=== PATIENT | female | born 1950 | race Caucasian/White ===

== ENCOUNTER → 2016-11-12 | Outpatient (CLI) | payer OTHER | LOC: MMPC 11:11 | PROVIDERS: ATTEND Physician Assistant | DX: B34.9 Viral infection, unspecified (principal) | CPT/HCPCS: 87400; 99213; G0463 ==

== ENCOUNTER → 2016-12-16 | Outpatient (CLI) | payer OTHER ==
[2016-12-16 15:01] LABS: HEMOGLOBIN 14.4 g/dL (12.0-16.0)
[2016-12-16 15:06] LABS: BLOOD UREA NITROGEN 15 mg/dL (7-22); BUN/CREATININE RATIO 21.42 (6-20); CALCIUM 9.3 mg/dL (8.7-10.7); EST GLOMERULAR FILTRATION > 60 (>60 ml/min/1.73m(2)); SERUM ALBUMIN 3.7 g/dL (3.5-4.8)
[2016-12-16 15:07] LABS: BASOPHILS # (AUTO) 0.04 10*3/UL; BASOPHILS % (AUTO) 0.9 % (0-1); EOSINOPHILS % (AUTO) 2.3 % (0-8); HEMATOCRIT 42.5 % (37.0-47.0); LYMPHOCYTES # (AUTO) 2.29 10*3/uL; MEAN CORPUSCULAR HGB CONC 33.9 g/dL (33-37); MEAN CORPUSCULAR VOLUME 94.4 FL (81-99); MONOCYTES # (AUTO) 0.53 10*3/UL (0.3-0.8); MONOCYTES % (AUTO) 12.2 % (5-15); NEUTROPHILS # (AUTO) 1.36 10*3/UL; NEUTROPHILS % (AUTO) 31.5 % (50-80)
[2016-12-16 15:14] LABS: RBC MORPHOLOGY COMMENT NORMAL MORPHOLOGY (NORM); WBC MORPHOLOGY COMMENT NORMAL MORPHOLOGY (NORM)
[2016-12-16 15:15] LABS: PLATELET MORPHOLOGY COMMENT SEE COMMENTS (NORM)
== END ==
LOC: LAB 14:10
PROVIDERS: ATTEND Internal Medicine Gastroenterology
DX: B18.2 Chronic viral hepatitis C (principal); K74.69 Other cirrhosis of liver; K21.9 Gastro-esophageal reflux disease without esophagitis; R68.81 Early satiety
CPT/HCPCS: 36415; 80053; 82105; 85025; 85610

== ENCOUNTER → 2016-12-30 | Outpatient (CLI) | payer OTHER ==
--- NOTE | 2016-12-31 08:49 | DI ---
CT ABDOMEN SCAN WITHOUT AND WITH IV CONTRAST, 12/30/2016 8:59 AM : Clinical History: Hepatitis C. Status post Harvoni treatment was reportedly negative viral load. Cirr hosis. Previous Exam: None at this facility. Scans are performed from the lower lung bases through the liver and kidneys without and with IV contr ast. Sagittal and coronal reformatted images are generated. 75 ml of Isovue 300 was injected IV. Wate r was used for oral contrast. The lung bases are clear. The liver is small in size and has a nodular capsule consistent with the cl inical diagnosis of cirrhosis. There is no evidence of a tumor mass. The patient is status post kevin cystectomy. Both adrenal glands, the pancreas, and the spleen are normal. No varices are present. Bot h kidneys are normal in size, shape, position and contour. There is no hydronephrosis or hydroureter. No renal or ureteral calculi are present. There is no renal artery stenosis. There are no abnormal r etrocrural or periaortic nodes. There is no ascites. READIN. The liver is small in size and the capsule has a micronodular pattern consistent with cirrhosis. The spleen size is normal and the portal vein is patent. There are no esophageal, gastric, or splenic varices. 2. The remainder of the examination is normal.
== END ==
LOC: CT 08:55
PROVIDERS: ATTEND Internal Medicine Gastroenterology
DX: K31.84 Gastroparesis (principal); R68.81 Early satiety; K21.9 Gastro-esophageal reflux disease without esophagitis; K74.60 Unspecified cirrhosis of liver; B18.2 Chronic viral hepatitis C; Z92.29 Personal history of other drug therapy
CPT/HCPCS: 74170

== ENCOUNTER 2018-09-13 05:47 | Inpatient (IN) ==
[~2018-09-13 05:47] MED LIST: LIDOCAINE W/ SODIUM BICARB 0.5 ML SYR ONE; Lactated Ringers 1,000 ML PRIMARY IV ONE; ceFAZolin Inj 2gm (Premix) 2 GM/50 ML BAG IV ONE
[2018-09-13] MEDS ORDERED: Ketorolac Inj 30 MG, Morphine Inj (Ortho Cocktail) 5 MG, BUPivacaine Inj 0.25% PF 150 MG SPLASH ONE ×3 (06:00)
[2018-09-13] MEDS ORDERED: Nasal Sanitizer POPSWAB ampule 3 AMP (Nozin) PREOP DOSE ENOS SCH (06:00)
[2018-09-13] MEDS ORDERED: LIDOCAINE W/ SODIUM BICARB 0.5 ML SYR SUBD ONE (06:00)
[2018-09-13] MEDS ORDERED: Lactated Ringers 1,000 ML PRIMARY IV SCH (06:00)
[2018-09-13] MEDS ORDERED: ceFAZolin Inj 2gm (Premix) 2 GM/50 ML BAG IV ONE (06:00)
[2018-09-13 06:10] LABS: BILIRUBIN,URINE MODERATE (NEG); CLARITY,URINE CLEAR (CLEAR); COLOR,URINE YELLOW (Y); GLUCOSE, URINE (UA) NEGATIVE (NEG); OCCULT BLOOD,URINE NEGATIVE (NEG); PH,URINE 5.5 (5.0-8.5); PROTEIN,URINE 30 mg/dl (NEG)
[2018-09-13 06:18] LABS: URINE SAMPLE TYPE CLEAN CATCH URINE
[2018-09-13 06:32] LABS: BASOPHILS # (AUTO) 0.04 10*3/UL; EOSINOPHILS # (AUTO) 0.18 10*3/UL; EOSINOPHILS % (AUTO) 4.5 % (0-8); Hematocrit [HCT] 43.7 % (37.0-47.0); Hemoglobin [HGB] 14.9 g/dL (12.0-16.0); LYMPHOCYTES # (AUTO) 1.42 10*3/uL; MEAN CORPUSCULAR HEMOGLOBIN 31.1 PG (27-31); MEAN CORPUSCULAR HGB CONC 34.1 g/dL (33-37); MEAN CORPUSCULAR VOLUME 91.2 FL (81-99); MEAN PLATELET VOLUME 11.3 FL (7.4-12.2); MONOCYTES # (AUTO) 0.56 10*3/UL (0.3-0.8); MONOCYTES % (AUTO) 13.9 % (5-15); NEUTROPHILS # (AUTO) 1.84 10*3/UL; NEUTROPHILS % (AUTO) 45.5 % (50-80); RED BLOOD COUNT 4.79 10^6/uL (4.20-5.40)
[2018-09-13] MEDS ORDERED: MIDAZOLAM 5 MG/1 ML ONE (06:37)
[2018-09-13] MEDS ORDERED: fentaNYL Inj 250 MCG/5 ML VIAL ONE (06:37)
[2018-09-13] MEDS ORDERED: PROPOFOL 10 MG/1 ML (200 MG/20 ML) VIAL IV ONE (06:37)
[2018-09-13] MEDS ORDERED: LIDOCAINE MPF 2% - 5 ML (20 MG/1 ML) ONE (06:37)
[2018-09-13] MEDS ORDERED: LIDOCAINE 2%/ EPI 1:200,000 - 20 ML VIAL ONE (06:49)
[2018-09-13] MEDS ORDERED: BUPivacaine Inj 0.5% PF (5mg/ml) 30ml vial ONE (06:50)
[2018-09-13] MEDS ORDERED: BACITRACIN 50,000 UNIT VIAL IRRIG ONE (06:56)
[2018-09-13] MEDS ORDERED: Sodium Chloride 0.9% vial 20 ML ONE ×2 (06:56→07:00)
[2018-09-13] MEDS ORDERED: BUPivacaine Liposome/PF (Exparel) Inj 20ml vial INFIL ONE (07:00)
[2018-09-13] MEDS ORDERED: TRANEXAMIC ACID 1,000 MG / 10 ML VIAL ONE (07:49)
[2018-09-13 07:54] LABS: PLATELET MORPHOLOGY COMMENT NORMAL MORPHOLOGY (NORM); RBC MORPHOLOGY COMMENT NORMAL MORPHOLOGY (NORM); WBC MORPHOLOGY COMMENT NORMAL MORPHOLOGY (NORM)
[2018-09-13] MEDS ORDERED: Lactated Ringers 1,000 ML PRIMARY IV ONE ×2 (08:05→09:40)
[2018-09-13] MEDS ORDERED: SUFENTANIL 50 MCG/1 ML ONE (08:19)
[2018-09-13] MEDS ORDERED: KETAMINE HCL 100 MG/2 ML SYRINGE IV ONE (08:21)
[2018-09-13] MEDS ORDERED: EPINEPHrine Inj (1:1,000) 1 mg/ml amp ONE (09:11)
[2018-09-13] MEDS ORDERED: PHENYLEPHRINE 10,000 MCG/1 ML VIAL ONE (09:26)
[2018-09-13] MEDS ORDERED: GLYCOPYRROLATE 0.2 MG/1 ML VIAL ONE (09:26)
[2018-09-13] MEDS ORDERED: Sodium Chloride 0.9% vial 10 ML ONE (09:26)
[2018-09-13] MEDS ORDERED: ESMOLOL HCL 100 MG/10 ML VIAL ONE (09:40)
--- NOTE | 2018-09-13 10:08 | ORTHO.OP ---
Surgery Date: 09/13/18 Preoperative Diagnosis: Right knee OA Postoperative Diagnosis: Right knee OA Procedure: Right TKA Surgeon: Santi Rinaldi MD Cardiology Consultants: Oneyda Cheng PA-C Anesthesia Provider: Jose Stewart CRNA Anesthesia Type: General, Regional (adductor canal) Estimated Blood Loss (mL): 250 Fluids: 2500mL Pathology: None Findings: See Operative Note Indications: See Operative Note Complications: Other (cardiac arrhythmia-see anesthesia note)
[2018-09-13] MEDS ORDERED: ONDANSETRON 4 MG/2 ML VIAL IVP PRN ×2 (10:13→11:19)
[2018-09-13] MEDS ORDERED: HYDROmorphone 2 MG/1 ML IVP PRN (10:13)
[2018-09-13] MEDS ORDERED: LIDOCAINE W/ SODIUM BICARB 0.5 ML SYR SUBD PRN (10:13)
--- NOTE | 2018-09-13 10:13 | CRNA.PROGR ---
Anesthesia Recovery Phase I - Post Anesthesia Evaluation Patient's Condition on Arrival in Phase I: Stable Pain Level: 1
--- NOTE | 2018-09-13 10:13 | CRNA.PROGR ---
Anesthesia Time - Procedure/Recovery Time Start Date: 09/13/18 End Date: 09/13/18 Anesthesia : Time In: 07:30 Anesthesia : Time Out: 10:05 Anesthesia : Total Time: 155 - Block Time Start Date: 09/13/18 End Date: 09/13/18 PreOp Block : Time In: 06:50 PreOp Block : Time Out: 07:06 PreOp Block : Total Time: 16 - Total Anesthesia Time Total Anesthesia Time (minutes): 171 - Other Weight: 64.864 kg Height: 5 ft 1 in Body Mass Index (BMI): 27.0 Physical Status: P2 Anesthesia Type: General Anesthesia : ET (with adductor block)
[2018-09-13 10:14] LABS: Hematocrit [HCT] 36.9 % (37.0-47.0); Hemoglobin [HGB] 11.9 g/dL (12.0-16.0)
--- NOTE | 2018-09-13 10:16 | EKG ---
[address] [address] Measurements Intervals [place] Rate: 122 P: 67 IA: 157 QRS: 77 QRSD: 98 T: 12 QT: 342 QTc: 415 Interpretive Statements SINUS TACHYCARDIA INDETERMINATE AXIS MINIMAL ST DEPRESSION [0.025+ mV ST DEPRESSION] ABNORMAL RHYTHM ECG Compared to ECG 09/07/2018 09:41:30 Indeterminate axis now present ST (T wave) deviation now present (charlotte-septal) Sinus rhythm no longer present Electronically Signed On 09-13-18 14:06:30 MST by Samson Nuñez MD [email or web address]
--- NOTE | 2018-09-13 10:37 | DI ---
XR KNEE 1 OR 2 VWS,09/13/2018 9:55 AM: Clinical History: Right knee pain and osteoarthritis Previous Exam: 11/11/17 Findings: AP and lateral views of the right knee are obtained, and demonstrate postsurgical changes consistent with right total knee arthroplasty. There is some subcutaneous air noted. Skin adriana are seen anteriorly. There are no fractures. Impression: Status post right total knee arthroplasty.
[2018-09-13] MEDS ORDERED: LIDOCAINE HCL 2 % 10 ML JELLY URO-JECT TOPICAL PRN (11:19)
[2018-09-13] MEDS: Lactated Ringers 1,000 ML PRIMARY IV SCH ×2 (12:10→21:04)
[2018-09-13] MEDS: HYDROcodone-APAP 7.5 MG-325 MG TABLET PO PRN ×2 (13:52→18:55)
--- NOTE | 2018-09-13 14:46 | CONSULT ---
Consult Note - Consult Consult Date: 09/13/18 Reason for Consult: PostOp Consulation : Ortho Requesting Physician: Dr. Rinaldi Primary Care Provider: SANJEEV Dalton - History of Present Illness History of Present Illness: This is a 68 years old female medical history significant for history of hype rtension, depression, history of previous hepatitis C that was treated with Harvoni 3 years ago, history of cirrhosis of liver secondary to hepatitis C and history of osteoarthritis who came into the hospital to have knee replacement and was done today by Dr. Rinaldi. The hospitalist service were consulted for management of medical issues. Apparently the patient during surgery had her blood pressure trending down based on the nurse diamond cleaner notes, the lowest was 78 systolic and she was given ephedrine and after that she had a run of V. tach with a short period of asystole which happened twice, then the patient went into multifocal PVC followed by a conversion to sinus tachycardia. Blood pressure did go up then started trending down again this time 0.2 mg of glycopyrrolate was given there was a mild increase in the heart rate little response of blood pressure. one dose of 50 MCG of phenylephrine was given for blood pressure support the patient's response to the phenylephrine was an adequate increase in blood pressure but Heart rate spiked into the 160. This continued for several minutes without any signs of decreasing then she was given a dose of esmolol in her heart rate went down. Patient was extubated and transferred to the ICU. Patient currently denying symptoms denying chest pain, palpitation, dizziness, nausea, shortness of breath. He did not give a history of chest pain or shortness of breath prior to surgery. Past Medical History Medical History: 1. History of hypertension. 2. History of hypothyroidism. 3. History of hepatitis C had Harvoni treatment in the past and that was 3 years ago. 4. History of depression. 5. History of cirrhosis of liver secondary to hep C infection. No history of esophageal varices, or encephalopathy before. 6. History of endometriosis on hormonal replacement she said she started cutting back on the hormonal replacement a week ago she's taking half of the dosage that she used to take before. Surgical History: 1. History of cholecystectomy. 2. History of hysterectomy Family History: Reviewed an Not Pertinent Past Social History: Does not smoke, does not drink no drugs. Tobacco Use: Never Smoker In the Past 12 Months, Have Used or Abuse Any of the Following Substance: None Alcohol Use: None Review of Systems - Review of Systems All Systems: Reviewed & No Additional Complaints Except as Stated Medication / Allergies Home Medications: Home Medications Medication Instructions Recorded Confirmed Type Losartan Potassium 50 mg PO QD #90 tab 05/24/15 09/13/18 History estradiol 1 mg tablet 1 mg PO QDAY 11/11/17 09/13/18 History paroxetine 20 mg tablet 10 mg PO QAM 11/11/17 09/13/18 History levothyroxine 75 mcg capsule 37.5 mcg PO QDAY #30 cap 11/19/17 09/13/18 Rx Hydrocodone/Acetaminophen [[place] 1 - 2 ea PO Q4-6H PRN #70 tab 09/13/18 Rx 7.5-325 Tablet] Rivaroxaban [Xarelto] 10 mg PO DAILY #12 tab 09/13/18 Rx Allergies/Adverse Reactions: Allergies Allergy/AdvReac Type Severity Reaction Status Date / Time No Known Allergies Allergy Verified 09/12/18 09:58 Exam - Vitals Vital Signs: Vital Signs Temperature 97.3 F Temperature Source Temporal Artery Scan Pulse Rate [Telemetry] 93 Pulse Rate 118 Respiratory Rate 16 Blood Pressure [Right Arm] 119/72 Blood Pressure 156/92 Pulse Ox 92 Oxygen Flow Rate 3 Oxygen Delivery Method Nasal Cannula Height 5 ft 1 in Weight 143 lb - General General Appearance: No Acute Distress, Cooperative - Head Head Exam: Normal Inspection - Eye Eye Exam: POSITIVE: Normal Appearance - ENT ENT Exam: POSITIVE: Normal Exam - Neck Neck Exam: Normal Inspection - Respiratory Respiratory Exam: POSITIVE: Clear to Auscultation - Bilaterally - Cardiovascular Cardiovascular Exam: POSITIVE: RRR - GI/Abdominal GI/Abdominal Exam: POSITIVE: Normal Bowel Sounds, Non Tender, Non Distended, Soft, No Organomegaly - Rectal Rectal Exam: POSITIVE: Deferred - External Exam: POSITIVE: Deferred Exam: POSITIVE: Deferred - Extremities Additional Extremities Exam Details: Dressing applied to the right knee. - Neurological Neurological Exam: POSITIVE: Alert, Oriented x 3, CN II-XII Intact, No Facial Droop, Speech Intact / Clear - Psychiatric Psychiatric Exam: POSITIVE: Normal Affect Results - Labs CBC and BMP: 09/13/18 09:55 09/13/18 15:39 Assessment and Plan - Patient Problems (1) History of cardiac arrhythmia Current Visit: Yes Status: Acute Comment: I don't have a printout of the events but based on the notes she had the V. tach and period of asystole and she required medication. There was no need for cardioversion. I think will order cardiac enzymes and will order echocardiogram for her. We'll keep her on telemetry. May discuss with cardiology. I think will DC the estrogen. She probably need to have at one point more cardiac investigations. Code(s): Z86.79 - Personal history of other diseases of the circulatory system (2) Hypertension Current Visit: No Status: Chronic Comment: Same medications Code(s): I10 - Essential (primary) hypertension Qualifiers: Hypertension type: essential hypertension Qualified Code(s): I10 - Essential (primary) hypertension (3) Depressive disorder Current Visit: No Status: Chronic Comment: Same med Code(s): F32.9 - Major depressive disorder, single episode, unspecified
--- NOTE | 2018-09-13 15:07 | CRNA.PROCE ---
Nerve Block Documentation - - Type of Nerve Block Used: Right Adductor Canal Nerve Block Position for Nerve Block: Supine Moniters Used During Block: EKG, SPO2, NIBP Sedation Used - Enter Amount in Comment Field [ANES.SEDAT]: Midazolam (mg): Yes (2mg), Fentanyl (mcg): Yes Skin Prep Used: ChloroPrep Nerve Block Needle Used: EchoBright 50 mm Local Anesthetic - Enter Amt in Comment Field [ANES.LOCNB]: 0.5 % Bupivacaine Plain (mL): Yes (20ml), 2 % Xylocaine with Epinephrine 1:200,000 (mL): Yes (20ml) Additives to Nerve Blocks: Dexamethasone (mg): Yes (8mg(2ml)) Anesthesia Time - Block Time PreOp Block : Time In: 06:50 PreOp Block : Time Out: 07:06 - Other Weight: 64.864 kg Height: 5 ft 1 in Body Mass Index (BMI): 27.0
--- NOTE | 2018-09-13 15:31 | CRNA.PROGR ---
Anesthesia Note - Progress Notes Anesthesia Progress Note: Intraoperative Arrythmia During the course of the surgery, during the point at which the tourniquet was inflated, the cementing of the components and the injection of the "ortho- cocktail". The patients blood pressure was trending down as well as the heart rate, so a dose of 10mg ephdrine was given. Within 15-20 seconds of that dose the patient went into an episode of V-Tach, 2 episodes by a short segment of asystole. The patient then went into multifocal PVC followed by a conversion to sinus tachycardia. There was an exaggerated blood pressure response to the ephedrine which was short lived. The blood pressure and HR again began trending down again. This time .2mg of glycopyrrolate was given as an alternative to ephedrine. there was a mild increase of HR with little response of blood pressure. A dose of phenylepherine 50mcg was given for BP support. The patients response to the Phenylepherine was an adequate increase BP but her HR spiked immediate to 160bpm. This continued for several minutes without any signs of decreasing. A trial dose of 30mg esmolol was given for the tachycardia which was effect bring the hr down to 80bpm. By this time we were emerging from anesthesia. She had a normal easy emergence, was extubated and taken to the PACU. Vital signes were stable throughout PACU stay. See the Anesthesia record for dosing , VS, and timeline.
[2018-09-13] MEDS: ceFAZolin Inj 2gm (Premix) 2 GM/50 ML BAG IV SCH (15:35)
[2018-09-13] MEDS ORDERED: CYCLOBENZAPRINE 10 MG TABLET PO PRN (15:51)
[2018-09-13 16:13] LABS: BLOOD UREA NITROGEN 14 mg/dL (7-22)
[2018-09-13] MEDS: KETOROLAC 15 MG/1 ML VIAL IVP PRN (16:25)
[2018-09-13] MEDS ORDERED: Magnesium Sulfate 2gm (Premix) 2 GM/50 ML BAG IV ONE (16:35)
[2018-09-13] MEDS: DOCUSATE 100 MG CAPSULE PO SCH ×2 (20:55→21:04)
[2018-09-14] MEDS: ceFAZolin Inj 2gm (Premix) 2 GM/50 ML BAG IV SCH (00:04)
[2018-09-14] MEDS: KETOROLAC 15 MG/1 ML VIAL IVP PRN (05:03)
[2018-09-14] MEDS: HYDROcodone-APAP 7.5 MG-325 MG TABLET PO PRN ×5 (05:03→20:44)
[2018-09-14 05:16] LABS: Hemoglobin [HGB] 10.2 g/dL (12.0-16.0); MEAN CORPUSCULAR HEMOGLOBIN 30.5 PG (27-31); MEAN CORPUSCULAR HGB CONC 31.9 g/dL (33-37); MEAN CORPUSCULAR VOLUME 95.8 FL (81-99); MEAN PLATELET VOLUME 12.1 FL (7.4-12.2); RED BLOOD COUNT 3.34 10^6/uL (4.20-5.40)
[2018-09-14 05:23] LABS: BLOOD UREA NITROGEN 18 mg/dL (7-22)
[2018-09-14] MEDS ORDERED: LEVOTHYROXINE 25 MCG TABLET PO SCH (05:30)
[2018-09-14] MEDS: Lactated Ringers 1,000 ML PRIMARY IV SCH (07:07)
--- NOTE | 2018-09-14 08:14 | PDOC(PROG) ---
Date of Service: 09/14/18 Time of Service: 08:15 Interval History: Subjective Patient is awake laying in bed does not appear in distress. She is denying symptoms. There is no chest pain, no shortness of breath. Some mild pain in her right knee. Objective : Data - Labs CBC and BMP: 09/14/18 04:15 09/14/18 04:15 Objective : Exam - General General Appearance: No Acute Distress, Cooperative - Head Head Exam: Normal Inspection - Eye Eye Exam: Normal Appearance - ENT ENT Exam: Normal Exam - Neck Neck Exam: Normal Inspection - Respiratory Respiratory Exam: Clear to Auscultation - Bilaterally - Cardiovascular Cardiovascular Exam: RRR - GI/Abdominal GI/Abdominal Exam: Normal Bowel Sounds, Non Tender, Non Distended, Soft, No Organomegaly - Rectal Rectal Exam: Deferred - External Exam: Deferred - Extremities Additional Extremities Exam Details: SCD boots applied. Dressing applied to right knee. - Back Back Exam: Normal Inspection - Neurological Neurological Exam: Alert, Oriented x 3, CN II-XII Intact, No Facial Droop, Speech Intact / Clear, Moves All Extremities Equally - Psychiatric Psychiatric Exam: Normal Affect - Integumentary Integumentary Exam: Normal Color Assessment and Plan - Patient Problems (1) History of cardiac arrhythmia Current Visit: Yes Status: Acute Comment: No more events overnight. Her enzymes remained negative. She will have an echocardiogram today. I'll speak with the cardiology today. I told her probably need to have a stress test at one point in time. We did not put her on beta blockers as her heart rate went down to the 40s. Did not last long. I think will take out of the ICU. Magnesium was a little bit low we gave her magnesium yesterday. Last night we did give her a trial of BiPAP as after the pain medication her breathing slowed down and she tolerated that well. Today she is awake with it and normal breathing pattern. There was question of sleep apnea we'll see how things looks tonight. Code(s): Z86.79 - Personal history of other diseases of the circulatory system (2) Hypertension Current Visit: No Status: Chronic Comment: Continue losartan but at a lower dosage Code(s): I10 - Essential (primary) hypertension Qualifiers: Hypertension type: essential hypertension Qualified Code(s): I10 - Essential (primary) hypertension (3) Depressive disorder Current Visit: No Status: Chronic Comment: Same med Code(s): F32.9 - Major depressive disorder, single episode, unspecified (4) History of cirrhosis Current Visit: Yes Status: Acute Comment: I think the thrombocytopenia and leukopenia that's sometimes she has is a result of her cirrhosis causing congestive splenomegaly. Her platelet count is 88,000 today we'll keep an eye on it she will have another repeat tomorrow. But she has a history of thrombocytopenia. Code(s): Z87.19 - Personal history of other diseases of the digestive system
[2018-09-14] MEDS: DOCUSATE 100 MG CAPSULE PO SCH ×2 (08:40→20:44)
[2018-09-14] MEDS ORDERED: ONDANSETRON 4 MG/2 ML VIAL IVP PRN (08:45)
[2018-09-14] MEDS ORDERED: LIDOCAINE HCL 2 % 10 ML JELLY URO-JECT TOPICAL PRN (08:45)
[2018-09-14] MEDS ORDERED: PARoxetine Tab 20 MG TAB PO SCH (09:00)
[2018-09-14] MEDS ORDERED: LOSARTAN 50 MG TABLET PO SCH (09:00)
[2018-09-14] MEDS ORDERED: LOSARTAN 25 MG TABLET PO SCH (09:00)
[2018-09-14] MEDS ORDERED: ENOXAPARIN SODIUM 30 MG/0.3 ML SYRINGE SUBCUT SCH (09:00)
--- NOTE | 2018-09-14 10:25 | ORTHO.PROG ---
Last Taken Vital Signs: Vital Signs - Last Taken Temperature 98.6 F 09/14/18 08:00 Pulse Rate 59 L 09/14/18 08:00 Respiratory Rate 18 09/14/18 08:00 Blood Pressure 114/60 09/14/18 08:00 Pulse Ox 95 09/14/18 08:00 Subjective: Patient is POD 1 from Right TKA overall doing well in regards to the knee. She s tates her pain is well controlled. Denies any CP, SOB, F/C, or calf pain. Objective: Laboratory Results 09/13/18 09/13/18 09/13/18 15:39 15:39 15:39 WBC RBC Hgb Hct MCV MCH MCHC RDW Std Deviation RDW Coeff of Zora Plt Count MPV Sodium 140 Potassium 4.3 Chloride 108 Carbon Dioxide 22 L Anion Gap 10 BUN 14 Creatinine 0.7 Estimated GFR > 60 BUN/Creatinine Ratio 20.00 Glucose 148 H Calculated Osmolality 293.0 H Calcium 8.9 Magnesium 1.5 L Troponin I 0.038 TSH Free T4 09/13/18 09/13/18 09/14/18 20:54 20:54 04:15 WBC 7.12 RBC 3.34 L Hgb 10.2 L Hct 32.0 L MCV 95.8 MCH 30.5 MCHC 31.9 L RDW Std Deviation 45.9 RDW Coeff of Zora 13.8 Plt Count 88 L MPV 12.1 Sodium Potassium Chloride Carbon Dioxide Anion Gap BUN Creatinine Estimated GFR BUN/Creatinine Ratio Glucose Calculated Osmolality Calcium Magnesium Troponin I 0.021 TSH 0.641 Free T4 0.86 L 09/14/18 09/14/18 09/14/18 04:15 04:15 04:15 WBC RBC Hgb Hct MCV MCH MCHC RDW Std Deviation RDW Coeff of Zora Plt Count MPV Sodium 140 Potassium 4.4 Chloride 106 Carbon Dioxide 27 Anion Gap 7 BUN 18 Creatinine 0.8 Estimated GFR > 60 BUN/Creatinine Ratio 22.50 H Glucose 115 H Calculated Osmolality 292.0 Calcium 9.1 Magnesium 2.3 Troponin I < 0.012 TSH Free T4 On exam, the patient is awake in bed, A & O x 3, breathing non-labored. Dressing is clean/dry/intact with Prevena dressing in place. Negative calf tenderness. NV intact. Assessment: Patient is POD 1 s/p Right TKA currently undergoing cardiac workup by hospitalist for cardiac arrhythmia intra-op. Overall doing well from orthopedic standpoint. Plan: * DVT ppx: continue lovenox 30mg SC BID and SCDs * CPM x 8 hours while in bed * WBAT with walker * PT/OT per protocol * pain meds: continue hydrocodone and flexeril * Wound care: leave dressing in place x 5 days, may reinforce as needed * discharge home once cleared by PT and hospitalist
--- NOTE | 2018-09-14 11:33 | PT.PROG ---
Progress Note Progress Note: S. Patient stated that she is feeling better today. O. Patient ambulated 50 feet in the [place] and back to her room where she was left in her chair with alarm and call light. A. Patient tolerated ambulation well, she was able to ambulate with no pain or problems, she agreed to do more this afternoon. O. Continue POC.
[2018-09-14] MEDS ORDERED: CYCLOBENZAPRINE 10 MG TABLET PO PRN ×2 (12:29→15:00)
--- NOTE | 2018-09-14 15:11 | PTI REPORT ---
Thank you for the referral of Silvana Lopez. She was seen on 09/13/18 for an inpatient evaluation status post right total knee arthroplasty. SUBJECTIVE: The patient is a 68-year-old female. According to the nursing staff, the patient is currently in the ICU due to her possible v-tach as well as low blood pressure while in surgery; however, she is doing well right now. They request physical therapy's assistance due to the patient needing to get up and use the bathroom. PAST MEDICAL HISTORY: Past medical history can be found in the patient's medical record. OBJECTIVE FINDINGS: Pain: The patient reports a pain level currently of 3/10 on the verbal analog scale (0=no pain, 10=worst pain); however, according to the nursing staff she did receive two Norcos approximately 30 minutes before therapy arriving. Bed mobility: The patient was able to perform bed mobility with min assist from supine to edge of bed. Transfers: The patient was able to perform sit to stand transfers with verbal and tactile cues for proper hand placement with the use of a standard walker. Ambulation: The patient was limited to 2-3 steps bedside due to her catheter, IVs, oxygen tubing. Range of motion/Strength: Formal range of motion and strength were not tested; however, the patient is able to perform an independent straight leg raise with extensor lag and tolerate passive range of motion in the CPM from 90 degrees of flexion to -4 degrees of extension. Incision: The patient's incision was unable to be inspected due to the surgical bandage. ASSESSMENT: Problem List: Pain in the right knee Decreased passive and active range of motion in the right knee Decreased strength in the right knee Short-Term Goals: To be met by discharge from inpatient: Patient will be able to transfer from bed to stand independently. Patient will be able to ambulate 100 feet with walker, weight-bearing as tolerated. Patient will be able to ascend and descend five stairs with walker, weight- bearing as tolerated. Long-Term Goals: To be met following discharge from inpatient: Patient will be seen by outpatient physical therapy. TREATMENT PLAN: Patient will be seen B.I.D during the week and one time per day over the weekend as an inpatient to address the above goals and objectives. INITIAL TREATMENT: Treatment today consisted of the initial evaluation followed by the patient performing bed mobility from supine to edge of bed with verbal cues and tactile cues for safety awareness as well as assistance with toileting at edge of bed with a commode. She was issued CPM pads and placed in the CPM from 90 degrees to 4 degrees beyond full extension. Nursing was notified that it would be ideal if the patient could be left in the CPM until at least dinner time. KAVYA
[2018-09-14] MEDS ORDERED: KETOROLAC 15 MG/1 ML VIAL IVP ONE (15:17)
--- NOTE | 2018-09-14 15:21 | PT.PROG ---
Progress Note Progress Note: S: pt reports she is doing well. minimal pain. has one step into her home. O: nsg okay'd prior to PT. pt instructed it sit to stand transfers w CGA x 1 for safety w walker. pt instructed to ambulate 50 feet with CGA x 1 and walker . pt instructed in 12 stairs ascending and descending with CGA x 1 and min verbal cu ing for technique. pt instructed to ambulate approx another 150 feet with CGAx 1 and walker. slowed gait speed but steady. Pt left in her bed with call light within reach . no alarms on pt when PT arrived. A: pt tolerated therapy well. pt instructed in stairs today. doing well. P: cont per POC.
[2018-09-14] MEDS: AMOXICILLIN 500 MG CAPSULE PO SCH ×2 (15:39→20:43)
[2018-09-14] MEDS: ENOXAPARIN SODIUM 30 MG/0.3 ML SYRINGE SUBCUT SCH (20:44)
[2018-09-15] MEDS: HYDROcodone-APAP 7.5 MG-325 MG TABLET PO PRN ×3 (01:37→12:41)
[2018-09-15 04:57] LABS: Hematocrit [HCT] 30.1 % (37.0-47.0); Hemoglobin [HGB] 9.4 g/dL (12.0-16.0); MEAN CORPUSCULAR HEMOGLOBIN 30.2 PG (27-31); MEAN CORPUSCULAR HGB CONC 31.2 g/dL (33-37); MEAN CORPUSCULAR VOLUME 96.8 FL (81-99); MEAN PLATELET VOLUME 11.6 FL (7.4-12.2); RED BLOOD COUNT 3.11 10^6/uL (4.20-5.40)
[2018-09-15 05:15] LABS: BLOOD UREA NITROGEN 19 mg/dL (7-22); BUN/CREATININE RATIO 23.75 (6-20)
[2018-09-15] MEDS ORDERED: LEVOTHYROXINE 75 MCG TABLET PO SCH (05:30)
[2018-09-15 07:49] VITALS: O2SAT 97
[2018-09-15] MEDS: ENOXAPARIN SODIUM 30 MG/0.3 ML SYRINGE SUBCUT SCH (08:33)
[2018-09-15] MEDS: AMOXICILLIN 500 MG CAPSULE PO SCH (08:33)
[2018-09-15] MEDS: DOCUSATE 100 MG CAPSULE PO SCH (08:33)
--- NOTE | 2018-09-15 08:48 | ORTHO.PROG ---
Last Taken Vital Signs: Vital Signs - Last Taken Temperature 97 F 09/15/18 07:48 Pulse Rate 77 09/15/18 07:48 Respiratory Rate 17 09/15/18 07:48 Blood Pressure 116/77 09/15/18 07:48 Pulse Ox 97 09/15/18 07:48 Subjective: Patient reports her is having a lot of discomfort in the knee. She feels that 2 tablets of the hydrocodone bring the pain to a manageable level. It has been 7 hours since she had her last dose of pain medicine. Denies any CP, SOB, F/C, calf pain, or dizziness. She feels ready to go home today. She states her lives with her and is able to help her at home. Objective: Laboratory Results 09/15/18 09/15/18 04:50 04:50 WBC 5.66 RBC 3.11 L Hgb 9.4 L Hct 30.1 L MCV 96.8 MCH 30.2 MCHC 31.2 L RDW Std Deviation 47.6 RDW Coeff of Zora 14.0 Plt Count 75 L MPV 11.6 Sodium 139 Potassium 3.8 Chloride 107 Carbon Dioxide 27 Anion Gap 5 BUN 19 Creatinine 0.8 Estimated GFR > 60 BUN/Creatinine Ratio 23.75 H Glucose 84 Calculated Osmolality 288.0 Calcium 8.5 L On exam, the patient is laying in the chair, A&O x 3, breathing non-labored. Dressing c/d/i. Negative calf tenderness. NV intact. AROM knee, ankle, and foot without difficulties. Assessment: POD 2 s/p Right TKA with cardiac arrhythmia intra-op undergoing cardiac testing. Stable from an orthopedic standpoint and ready to be discharged home once cleared by PT and hospitalist. Plan: * DVT ppx: discharge home on Xarelto 10mg 1 tablet daily x 12 days then switch to ASA 81mg 1 tablet daily x 6 weeks; discharge home with portable SCDs * Pain meds: discharge home with hydrocodone * Wound care: may remove Prevena dressing on POD 5; no soaking of the incision x 4 weeks * WBAT with walker * PT: start outpatient PT upon discharge per protocol * discharge home once cleared by PT and hospitalist * follow-up with orthopedics in 2 weeks as scheduled
[2018-09-15] MEDS ORDERED: LOSARTAN 25 MG TABLET PO SCH (09:00)
--- NOTE | 2018-09-15 09:32 | DCSUMMARY ---
Hospitalization Summary Hospital Course: Final Discharge Diagnosis: Current Visit Problems Problem Status Onset Code History of cardiac arrhythmia Acute Z86.79 History of cirrhosis Acute Z87.19 Status post right total knee replacement by Dr. Rinaldi Diagnostic Data, Laboratory Data, and Procedures of Signifigance: History and Physical pertinent to Admission: Past Medical History Medical History: 1. History of hypertension. 2. History of hypothyroidism. 3. History of hepatitis C had Harvoni treatment in the past and that was 3 years ago. 4. History of depression. 5. History of cirrhosis of liver secondary to hep C infection. No history of esophageal varices, or encephalopathy before. 6. History of endometriosis on hormonal replacement she said she started cutting back on the hormonal replacement a week ago she's taking half of the dosage that she used to take before. Surgical History: 1. History of cholecystectomy. 2. History of hysterectomy Family History: Reviewed an Not Pertinent Past Social History: Does not smoke, does not drink no drugs. Tobacco Use: Never Smoker In the Past 12 Months, Have Used or Abuse Any of the Following Substance: None Course of Hospitalization: Is a very nice 68-year-old female that underwent right total knee replacement by Dr. Rinaldi please see his operative notes and soap notes from the PA and himself for details. Hospitalist service was consult because wall the patient and was undergoing surgery before it actually started according to the nurse glass curvature gauger assist she had the systolic blood pressure 78 she was subsequently given epi daily observe the run of V. tach on the monitor then the PVCs than sinus tach and compression to to sinus rhythm. Then she was given esmolol and had some bradycardia. For the last 2 days patient has been stable on telemetry WITH sinus rhythm to EKG including one before discharge today showed sinus rhythm. Her magnesium was replaced and is now normal. My colleague and I both discussed the case with Dr. Kuo cardiology he will be seeing her tomorrow in his office at 11:00 AM in [place]. He believes that this might be secondary to the epi and is okay to be discharged home to go see them in the morning. Are no recordings or telemetry strips of this episode. Patient was seen this morning she has no complaints doing well denies chest pain. No lightheadedness or shortness of breath. Discussed with nursing and respiratory therapy and Dr. Rinaldi's. On the date of discharge, the patient was examined: Gen.: No acute distress, alert, nontoxic Heart: Regular rate and rhythm, no murmurs, clicks, gallops, or rubs Lungs: Clear to auscultation bilaterally, breathing is nonlabored Abdomen/GI: Normal tones on auscultation, soft, nontender, nondistended Musculoskeletal/extremities: No clubbing, cyanosis, or edema Vitals reviewed and are listed below Vital Signs (24 hrs) 09/14/18 11:00 09/14/18 15:00 09/14/18 15:43 Temperature 99.9 F H Pulse Rate 72 101 H 90 Respiratory Rate 16 Blood Pressure [Right Arm] 148/72 Pulse Ox 94 09/14/18 19:00 09/14/18 20:26 09/14/18 23:00 Temperature 97.9 F Pulse Rate 83 83 65 Respiratory Rate 14 Blood Pressure [Right Arm] 115/62 Pulse Ox 95 09/15/18 00:27 09/15/18 01:35 09/15/18 03:00 Temperature 98.3 F 97.7 F Pulse Rate 78 73 62 Respiratory Rate 16 10 L Blood Pressure [Right Arm] 109/62 91/72 Pulse Ox 95 95 09/15/18 04:20 09/15/18 04:44 09/15/18 07:00 Temperature 97.4 F Pulse Rate 67 Respiratory Rate 14 17 Blood Pressure [Right Arm] 100/56 Pulse Ox 91 92 09/15/18 07:48 Temperature 97 F Pulse Rate 77 Respiratory Rate 17 Blood Pressure [Right Arm] 116/77 Pulse Ox 97 Assessment and Plan: 1. As per discharge assessments above 2. Disposition: Home he was discharge from or thrill and PT standpoint 3. Condition on discharge, stable and improved. 4. Diet: regular diet 5. Activities: resume normal activities 6. Follow-Up: 1. PCP is needed she will also follow with Dr. Kuo tomorrow morning at 11 AM 2. Postop instructions were given in written out by Dr. Rinaldi's PA. 7. Medications at the Time of Discharge: Home Medications Medication Instructions Recorded Confirmed Type Losartan Potassium 50 mg PO QD #90 tab 05/24/15 09/13/18 History estradiol 1 mg tablet 1 mg PO QDAY 11/11/17 09/13/18 History paroxetine 20 mg tablet 10 mg PO QAM 11/11/17 09/13/18 History levothyroxine 75 mcg capsule 37.5 mcg PO QDAY #30 cap 11/19/17 09/13/18 Rx Hydrocodone/Acetaminophen [[place] 1 - 2 ea PO Q4-6H PRN #70 tab 09/13/18 Rx 7.5-325 Tablet] Rivaroxaban [Xarelto] 10 mg PO DAILY #12 tab 09/13/18 Rx 8. Time, care, counseling and coordination of care for this discharge is greater than 30 minutes. Exam - Vitals Vital Signs: Vital Signs Temperature 97 F Temperature Source Temporal Artery Scan Pulse Rate [Apical] 59 Pulse Rate [Telemetry] 61 Pulse Rate 77 Respiratory Rate 17 Blood Pressure [Right Arm] 116/77 Blood Pressure 156/92 Pulse Ox 97 Oxygen Flow Rate 3 Oxygen Delivery Method Nasal Cannula Height 5 ft 1 in Weight 158 lb
--- NOTE | 2018-09-15 10:51 | OT.PROG ---
Progress Note Progress Note: OT: S: pt stated that she was feeling good today and agreed to therapy. O: tx consisted of seated dressing tasks. pt completed with use of instrumentation supervisor LE dressing. pt needed MIN A for positioning of instrumentation supervisor and completion of task. pt completed UE independently. A: pt O2 dropped to 83% while completing dressing task. P: continue POC
[2018-09-15 11:07] VITALS: BP 115/66; RESP 18; TEMP 97.7
--- NOTE | 2018-09-15 11:27 | PT.PROG ---
Progress Note Progress Note: S. Patient stated that she is a little stiff and sore however she feels ready to go home. O. Patient ambulated 175 feet to the therapy gym where she had heat to her knee then performed open chain exercises in the form of; heel slides, quads sets, glute sets, ankle pumps, short arc quads, straight leg raises, hip abduction/adduction, seated long arc quads and sit to stands all x 10 Patient then ambulated 175 feet back to her room where she was left in her chair with alarm and call light. A. Patient tolerated therapy well, she was able to ambulate with Stand by guard assist. Patient was able to perform all exercises with no increase in pain or problems. Patient would benefit from outpatient therapy at this time. P. Patient has met all goals at this time.
--- NOTE | 2018-09-15 11:34 | EKG ---
[address] [place] [address] Measurements Intervals [place] Rate: 79 P: 40 MI: 151 QRS: 18 QRSD: 86 T: 10 QT: 377 QTc: 412 Interpretive Statements SINUS RHYTHM Compared to ECG 09/13/2018 10:14:43 Sinus tachycardia no longer present Indeterminate axis no longer present ST (T wave) deviation no longer present Electronically Signed On 09-15-18 14:09:30 [facility] by Lei Padgett [email or web address]
--- NOTE | 2018-09-15 12:13 | OTI REPORT ---
Thank you for the referral of Silvana Lopez. She was seen on 09/14/18 for an occupational therapy inpatient evaluation status post right total knee arthroplasty. SUBJECTIVE: The patient is a 68-year-old female. The patient was having difficulty with her heart rate and blood pressure following surgery; therefore, she was admitted under ICU status. The patient is now stable in terms of heart rate and blood pressure per nursing report and is available for OT evaluation. The patient lives here in [place] with her . They live in a house that has two steps to the entrance of the home. Once inside the house, there are two steps within the house without hand rails. At prior level of function, the patient was not using an assistive device for ambulation. The patient was independent with all ADLs but was having some right knee pain. The patient has a walk-in shower with a shower chair. There are no grab bars within the shower. The patient has a comfort height toilet at home. The patient reports a pain level of 7/10 on the verbal analog scale (0=no pain, 10=worst pain). She did perform quite a bit of ambulation and 12 stairs earlier today with physical therapy and she is having quite a bit of pain. The patient states she does not want to get up at this time. PAST MEDICAL HISTORY: Past medical history can be found in the patient's medical record. OBJECTIVE FINDINGS: Range of motion: The patient demonstrated upper extremity range of motion within functional limits for the shoulder, elbow, hand, and wrist. Strength: The patient demonstrates 4/5 strength in the shoulders and 5/5 strength for the elbow, hand, and wrist bilaterally. Bed mobility: The patient is unwilling to get out of bed at this time secondary to pain. Nursing was notified and the patient was given pain medication. Activities of daily living: The patient was educated in lower extremity dressing equipment including a sock aide, a security developer, and a long handled bath sponge. The patient was issued these pieces of equipment. ASSESSMENT: Rehab potential is good. Problem List: Decreased ability to complete lower extremity dressing Decreased ability to complete functional transfers Decreased standing balance Short-Term Goals: To be met by discharge from inpatient: Patient will be able to complete lower extremity dressing with modified independence with use of adaptive equipment. Patient will demonstrate the ability to complete standing balance tasks with use of the walker or one hand on the sink for support to complete standing grooming tasks x5 minutes with no losses of balance. Patient will complete all functional transfers to include toilet/chair/bed with stand by assistance only. Long-Term Goals: To be met following discharge from inpatient: Patient will return to home with use of adaptive equipment to assist with lower extremity dressing tasks and with walker until mobility has improved. Patient may be seen by outpatient physical therapy. TREATMENT PLAN: Patient will be seen B.I.D during the week and one time per day over the weekend as an inpatient to address the above goals and objectives. INITIAL TREATMENT: Treatment today consisted of the initial evaluation activities only. KAVYA
== END 2018-09-15 14:41 | disposition home or self-care (01) | DRG 470 ==
LOC: OR 05:47 → OPS 05:47 → ICU 05:47 → OPS 05:57 → EDSTATUS 07:30 → ICU 11:14 → MED/SURG 09-14 08:04 → UNDODISIN 09-15 14:30 → OPS 09-30 13:31
PROVIDERS: ADMIT Orthopaedic Surgery; ATTEND Orthopaedic Surgery